=== PATIENT | male | born 1960 | race American Indian/Alaskan Native ===

== ENCOUNTER 2020-03-09 21:50 | Emergency (ER) | payer BC ==
[2020-03-10 00:09] LABS: Blood Urea Nitrogen 4 mg/dL (9-20); Calcium 9.5 mg/dL (8.4-10.2); Hemolysis Index 3
[2020-03-10 00:11] LABS: BUN/Creatinine Ratio 6
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
[2020-03-10 00:40] LABS: Basophils # (Auto) 0.1 K/mm3 (0.0-0.1); Basophils % (Auto) 1.2 % (0.0-1.8); Eosinophils % (Auto) 0.7 % (0.0-4.3); Hematocrit 43.7 % (35.5-45.6); Lymphocytes # (Auto) 1.4 K/mm3 (1.2-5.4); Lymphocytes % (Auto) 21.8 % (13.4-35.0); Mean Corpuscular HGB Conc 34 % (32-34); Mean Corpuscular Volume 100 fl (84-94); Monocytes # (Auto) 0.4 K/mm3 (0.0-0.8); Monocytes % (Auto) 6.5 % (0.0-7.3); Platelet Count 313 K/mm3 (140-440); Red Blood Count 4.35 M/mm3 (3.65-5.03); Red Cell Distribution Width 14.2 % (13.2-15.2)
[2020-03-10] MEDS ORDERED: levETIRAcetam 1000 MG/NS 0.75% 1,000 MG/100 ML BAG IV ONE (01:07)
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
[2020-03-10 02:13] VITALS: BP 115/65
== END 2020-03-10 02:15 | disposition other institution (70) ==
LOC: ED 21:50
DX: S06.5X0A Traumatic subdural hemorrhage without loss of consciousness, initial encounter (principal); S02.80XA Fracture of other specified skull and facial bones, unspecified side, initial encounter for closed fracture; X58.XXXA Exposure to other specified factors, initial encounter; Y93.89 Activity, other specified; Y92.89 Other specified places as the place of occurrence of the external cause; Y99.8 Other external cause status
CPT/HCPCS: 36415; 70450; 72125; 80048; 85025; 99291; J1953; 80320; G0480

== ENCOUNTER 2021-07-18 10:50 | Outpatient (CLI) | payer OTHER ==
--- NOTE | 2021-07-18 11:56 | XRay Report ---
BILATERAL KNEES STANDING AP VIEW INDICATION: BILATERAL KNEE PAIN. COMPARISON: None. 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 No evidence for fracture or hemant ne lesion. No significant valgus or varus deformity. There is suggestion of a chronic healed fracture in the proximal right fibular shaft. Please correlate with the patient's history. The soft tissues a re unremarkable. LUMBOSACRAL SPINE 3 VIEWS INDICATION: Back pain. COMPARISON: None. IMPRESSION: Normal alignment. Mild discogenic DJD and facet arthropathy are identified throughout t he lumbar spine. L4-5 appears to be the most affected level. No acute osseous or soft tissue abnorma lity. Signer Name: Abilio Ledbetter Jr, MD Signed: 07/18/2021 11:52 AM Workstation Name: [id number]
== END 2021-07-18 10:51 | disposition home or self-care (01) ==
LOC: XRAY 10:50
PROVIDERS: ATTEND Internal Medicine
DX: M17.0 Bilateral primary osteoarthritis of knee (principal); M47.816 Spondylosis without myelopathy or radiculopathy, lumbar region
CPT/HCPCS: 72100; 73565